=== PATIENT | male | born 1960 | race Caucasian/White ===

== ENCOUNTER 2023-03-05 07:27 | Day surgery (SDC) | payer OTHER ==
[~2023-03-05] VITALS: Ht 182.9 cm; Wt 77.1 kg
[2023-03-05] MEDS ORDERED: fentaNYL citrate 0.05 MG/ML VIAL ONE (08:34)
[2023-03-05] MEDS ORDERED: LIDOCAINE 2% 100 MG/5 ML UJET TP ONE (08:35)
[2023-03-05] MEDS ORDERED: LABETALOL 100 MG/20 ML VIAL ONE (09:43)
[2023-03-05] MEDS ORDERED: fentaNYL citrate 0.05 MG/ML VIAL IVP ONE (09:55)
[2023-03-05] MEDS ORDERED: LABETALOL 20 MG/4 ML VIAL IVP SCH (10:38)
== END 2023-03-05 10:41 | disposition home or self-care (01) ==
LOC: MDS 07:27 → MMU 07:28 → MDS 10:41
PROVIDERS: ATTEND Internal Medicine Gastroenterology
DX: K62.5 Hemorrhage of anus and rectum (principal); I10 Essential (primary) hypertension; E11.9 Type 2 diabetes mellitus without complications; K57.30 Diverticulosis of large intestine without perforation or abscess without bleeding; K64.8 Other hemorrhoids; E78.00 Pure hypercholesterolemia, unspecified; Z86.73 Personal history of transient ischemic attack (TIA), and cerebral infarction without residual deficits; Z79.82 Long term (current) use of aspirin; Z79.899 Other long term (current) drug therapy
CPT/HCPCS: 45378; 82948; J3010; J3490